=== PATIENT | female | born 1945 | race Caucasian/White ===

== ENCOUNTER 2017-12-04 21:13 | Inpatient (IN) | payer OTHER, BC ==
[~2017-12-04] VITALS: Ht 162.6 cm; Wt 75.5 kg
[~2017-12-04 21:13] MED LIST: ALPRAZOLAM0.25 M2 PO; AMLODIPINE BESYL5 MG PO; ASPIR-LOW81 MG PO; B-121000 MC2 PO; BONIVA150 MG PO; CELEBREX200 MG PO; CITALOPRAM HBR10 MG PO; COQ-10100 MG PO; CRESTOR5 MG PO; DIOVAN160 MG PO; DUONEB 2.5-0.5 M3 ML AEROSOL; HYDROCODON-ACE1 EAC7 PO; NASONEX17 GM BOTH NARES; OMEPRAZOLE40 M1 PO; PANTOPRAZOLE SO40 MG PO; PREDNISONE20 MG PO; SINGULAIR10 MG PO; SYMBICORT60 INHALAT IH; SYNTHROID125 MCG PO; TRAMADOL HCL50 MG PO; VITAMIN D32000 UNI1 PO; XOPENEX HF200 INHALA IH
[2017-12-04 21:58] LABS: HEMATOCRIT 38.5 % (36.0-46.0); HEMOGLOBIN 12.7 G/DL (11.9-15.5); MCH 29.1 PG (29.0-34.0); MCV 88.1 FL (83-99); PLATELET COUNT 251 K/uL (156-360); RBC DIS.WIDTH-CV 12.9 % (11.8-14.6); RBC DIS.WIDTH-SD 41.5 % (39-53); RED BLOOD COUNT 4.37 M/uL (3.80-5.20); WHITE BLOOD COUNT 15.1 K/uL (4.1-10.2)
[2017-12-04 21:59] LABS: CARBON DIOXIDE (BICARBONATE) 27.3 MEQ/L (20-31)
[2017-12-04 22:13] LABS: CHLORIDE 106 mEq/L (99-109); POTASSIUM 4.7 mEq/L (3.7-5.4); SODIUM 138 mEq/L (136-147)
[2017-12-04 22:15] LABS: GLUCOSE 135 mg/dL (70-99)
[2017-12-04 22:19] LABS: CREATININE 1.4 mg/dL (0.6-1.3); GFR ESTIMATE (CALCULATED) 39 mL/min/
[2017-12-04 22:20] LABS: TROP-I INTERPRETATION NEGATIVE; TROPONIN-I < 0.01 ng/mL (0.0-0.30); UREA NITROGEN (BUN) 21 mg/dL (9-23)
[2017-12-05 01:35] VITALS: BP 126/59
[2017-12-05 05:07] VITALS: BP 132/63
[2017-12-05 07:12] VITALS: BP 145/60
[2017-12-05 12:03] VITALS: BP 147/73
[2017-12-05] MEDS ORDERED: TOPROL XL100 MG PO (12:46)
[2017-12-05 16:00] VITALS: BP 151/100
[2017-12-05 20:13] VITALS: BP 168/81
[2017-12-06] VITALS (7 sets, daily range): BP systolic 141–182; BP diastolic 59–84
[2017-12-06 07:13] LABS: PLATELET COUNT 235 K/uL (156-360)
[2017-12-06 07:19] LABS: HEMATOCRIT 35.2 % (36.0-46.0); HEMOGLOBIN 11.4 G/DL (11.9-15.5); MCH 28.8 PG (29.0-34.0); MCHC 32.4 G/DL (30.0-36.0); MCV 88.9 FL (83-99); RBC DIS.WIDTH-CV 13.1 % (11.8-14.6); RBC DIS.WIDTH-SD 42.7 % (39-53); RED BLOOD COUNT 3.96 M/uL (3.80-5.20); WHITE BLOOD COUNT 31.4 K/uL (4.1-10.2)
[2017-12-06 07:34] LABS: CHLORIDE 106 MEQ/L (99-109); CREATININE 1.3 MG/DL (0.6-1.3); GFR ESTIMATE (CALCULATED) 43 mL/min/; GLUCOSE 145 mg/dL (70-99); POTASSIUM 4.8 MEQ/L (3.7-5.4); SODIUM 143 MEQ/L (136-147); UREA NITROGEN (BUN) 24 mg/dL (9-23)
[2017-12-07 03:52] VITALS: BP 136/60
[2017-12-07 07:01] LABS: BASOPHIL (%) 0.4 % (0-1); BASOPHIL COUNT 0.1 K/uL (0-0.1); EOSINOPHIL (%) 0 % (0-5); HEMATOCRIT 34.3 % (36.0-46.0); IMMATURE GRANULOCYTE (%) 2.1 % (0.0-0.7); LYMPHOCYTE (%) 3.3 % (15-42); LYMPHOCYTE COUNT 0.9 K/uL (1.0-2.8); MCH 28.2 PG (29.0-34.0); MCHC 32.1 G/DL (30.0-36.0); MCV 87.9 FL (83-99); MONOCYTE (%) 8.5 % (3-12); MONOCYTE COUNT 2.3 K/uL (0-0.8); NEUTROPHIL (%) 85.7 % (45-76); NEUTROPHIL COUNT 22.7 K/uL (1.8-6.4); PLATELET COUNT 267 K/uL (156-360); RBC DIS.WIDTH-CV 13.2 % (11.8-14.6); RBC DIS.WIDTH-SD 42.5 % (39-53); WHITE BLOOD COUNT 26.5 K/uL (4.1-10.2)
[2017-12-07 07:31] LABS: CHLORIDE 106 MEQ/L (99-109); CREATININE 1.4 MG/DL (0.6-1.3); GFR ESTIMATE (CALCULATED) 39 mL/min/; GLUCOSE 129 mg/dL (70-99); SODIUM 143 MEQ/L (136-147); UREA NITROGEN (BUN) 26 mg/dL (9-23)
[2017-12-07 07:36] VITALS: BP 132/80
[2017-12-07 11:15] VITALS: BP 139/81
[2017-12-07 15:58] VITALS: BP 159/80
[2017-12-07 19:47] VITALS: BP 162/76
[2017-12-07 22:59] VITALS: BP 164/74
[2017-12-08 03:36] VITALS: BP 151/64
[2017-12-08 06:45] LABS: BASOPHIL (%) 0.4 % (0-1); BASOPHIL COUNT 0.1 K/uL (0-0.1); EOSINOPHIL (%) 0 % (0-5); HEMATOCRIT 35.1 % (36.0-46.0); HEMOGLOBIN 11.2 G/DL (11.9-15.5); LYMPHOCYTE COUNT 1.3 K/uL (1.0-2.8); MCH 28.1 PG (29.0-34.0); MCHC 31.9 G/DL (30.0-36.0); MCV 88.2 FL (83-99); MONOCYTE (%) 9.1 % (3-12); MONOCYTE COUNT 1.9 K/uL (0-0.8); NEUTROPHIL (%) 81.5 % (45-76); NEUTROPHIL COUNT 17.1 K/uL (1.8-6.4); PLATELET COUNT 260 K/uL (156-360); RBC DIS.WIDTH-SD 42.6 % (39-53); RED BLOOD COUNT 3.98 M/uL (3.80-5.20)
[2017-12-08 07:14] LABS: CHLORIDE 103 MEQ/L (99-109); CREATININE 1.4 MG/DL (0.6-1.3); GFR ESTIMATE (CALCULATED) 39 mL/min/; POTASSIUM 3.9 MEQ/L (3.7-5.4); SODIUM 143 MEQ/L (136-147); UREA NITROGEN (BUN) 25 mg/dL (9-23)
[2017-12-08 07:33] LABS: GLUCOSE 96 mg/dL (70-99)
[2017-12-08 07:48] VITALS: BP 156/62
[2017-12-08 11:31] VITALS: BP 145/60
[2017-12-08 15:19] VITALS: BP 116/58
[2017-12-08 19:43] VITALS: BP 165/74
[2017-12-08 23:30] VITALS: BP 155/78
[2017-12-09 03:43] VITALS: BP 150/68
[2017-12-09 07:45] VITALS: BP 133/64
[2017-12-09 12:36] VITALS: BP 130/60
[2017-12-09 16:13] VITALS: BP 167/72
[2017-12-09 20:23] VITALS: BP 131/78
[2017-12-10 00:41] VITALS: BP 128/74
[2017-12-10 06:20] LABS: BASOPHIL (%) 0.4 % (0-1); BASOPHIL COUNT 0.1 K/uL (0-0.1); EOSINOPHIL (%) 0 % (0-5); HEMATOCRIT 36.2 % (36.0-46.0); IMMATURE GRANULOCYTE (%) 3.6 % (0.0-0.7); MCHC 33.1 G/DL (30.0-36.0); MCV 87.4 FL (83-99); MONOCYTE (%) 6.7 % (3-12); MONOCYTE COUNT 1.4 K/uL (0-0.8); NEUTROPHIL (%) 84.3 % (45-76); NEUTROPHIL COUNT 17.7 K/uL (1.8-6.4); PLATELET COUNT 311 K/uL (156-360); RBC DIS.WIDTH-SD 41.5 % (39-53); RED BLOOD COUNT 4.14 M/uL (3.80-5.20)
[2017-12-10 06:49] LABS: CHLORIDE 101 MEQ/L (99-109); CREATININE 1.2 MG/DL (0.6-1.3); GFR ESTIMATE (CALCULATED) 47 mL/min/; GLUCOSE 135 mg/dL (70-99); SODIUM 140 MEQ/L (136-147); UREA NITROGEN (BUN) 27 mg/dL (9-23)
[2017-12-10 06:50] VITALS: BP 141/58
[2017-12-10 11:34] VITALS: BP 129/53
[2017-12-10 17:11] VITALS: BP 105/56
[2017-12-10 19:50] VITALS: BP 147/63
[2017-12-10] MEDS ORDERED: LEVOFLOXACIN750 MG PO (20:48)
[2017-12-10] MEDS ORDERED: MYCOSTATIN 100,60 ML PO (20:49)
[2017-12-10] MEDS ORDERED: Ocean Nasal 0.65% BOTH NARES (20:51)
[2017-12-10] MEDS ORDERED: SORE THROAT LO1 EAC3 MM (20:51)
[2017-12-10] MEDS ORDERED: PREDNISONE10 M1 PO (20:52)
[2017-12-10] MEDS ORDERED: ZOLPIDEM TARTRAT5 MG PO (20:53)
[2017-12-10] MEDS ORDERED: CHERATUSSIN AC473 ML PO (20:54)
== END 2017-12-10 22:10 | disposition home or self-care (01) | DRG 194 ==
LOC: EME 21:13 → 2EASTP 12-05 00:05 → EDOF 12-05 00:05 → ENRESERV 12-05 00:06 → 2EASTP 12-05 01:17 → ENPENDDIS 12-10 → 2EASTP 12-10 22:10
PROVIDERS: Emergency Medicine; Family Medicine Sports Medicine; Internal Medicine Pulmonary Disease
DX: J13 Pneumonia due to Streptococcus pneumoniae (principal); J44.0 Chronic obstructive pulmonary disease with (acute) lower respiratory infection; J44.1 Chronic obstructive pulmonary disease with (acute) exacerbation; J20.9 Acute bronchitis, unspecified; Z99.81 Dependence on supplemental oxygen; I10 Essential (primary) hypertension; D64.9 Anemia, unspecified; E53.8 Deficiency of other specified B group vitamins; N28.9 Disorder of kidney and ureter, unspecified; D72.829 Elevated white blood cell count, unspecified; T38.0X5A Adverse effect of glucocorticoids and synthetic analogues, initial encounter; E03.9 Hypothyroidism, unspecified; R00.0 Tachycardia, unspecified; E11.9 Type 2 diabetes mellitus without complications; I25.10 Atherosclerotic heart disease of native coronary artery without angina pectoris; E78.5 Hyperlipidemia, unspecified; K21.9 Gastro-esophageal reflux disease without esophagitis; G89.29 Other chronic pain; M54.5 Low back pain; M19.90 Unspecified osteoarthritis, unspecified site; F41.1 Generalized anxiety disorder; F32.9 Major depressive disorder, single episode, unspecified; Z79.51 Long term (current) use of inhaled steroids; Z79.82 Long term (current) use of aspirin; Z87.01 Personal history of pneumonia (recurrent)
CPT/HCPCS: 71045; 71046; 71250; 80048; 82803; 83605; 83880; 84484; 85025; 85027; 87040; 87070; 87077; 87106; 87181; 87205; 87449; 87502; 93005; 94640; 94640 76; 94644; 94760; 94799; 99202; 99281; 99285; J0696; J1650; J2930; J7030; J7512